=== PATIENT | female | born 1980 | race African-American/Black ===

== ENCOUNTER 2021-12-17 12:40 | Outpatient (CLI) | payer BC | END 2021-12-17 12:41 | disposition home or self-care (01) | LOC: CSHMRI 12:40 | PROVIDERS: ATTEND Orthopaedic Surgery | DX: M25.552 Pain in left hip (principal); S76.012A Strain of muscle, fascia and tendon of left hip, initial encounter; M62.89 Other specified disorders of muscle ==

== ENCOUNTER 2021-12-17 13:50 | Emergency (ER) | payer BC ==
[2021-12-17] MEDS ORDERED: Cyclobenzaprine 10 MG TAB ONE (14:19)
[2021-12-17] MEDS ORDERED: Ketorolac Tromethamine 30 MG/ML VIAL ONE (14:19)
[2021-12-17 14:42] LABS: MDiff Complete? YES; Mean Corpuscular HGB CONC 32.1 g/dL (32.0-36.0); Mean Corpuscular Hemoglobin 23.7 pg (27.0-33.0); Mean Corpuscular Volume 73.9 fl (81.6-98.3); Mean Platelet Volume 9.5 fl (7.4-10.4); Platelet Count 430 10x3/uL (150-450); RBC Distribution Width 15.2 % (11.5-14.5); Red Blood Cell (RBC) Count 5.06 10x6/uL (3.90-5.03); White Blood Cell (WBC) Count 23.5 10x3/uL (3.5-10.5)
[2021-12-17 14:51] LABS: ALT (SGPT) 50 U/L (8-55); AST (SGOT) 30 U/L (5-34); Albumin 3.6 g/dL (3.5-5.0); Alkaline Phosphatase 85 U/L (40-110); Anion Gap 13 mmol/L (10-20); BUN (Urea Nitrogen) 8 mg/dL (7.0-18.7); Bilirubin, Total 0.4 mg/dL (0.2-1.2); CRP (Inflammatory) 9.12 mg/dL (= or < 0.5); Calc. Creatinine Clearance 0 mL/min (70-130); Calcium 9.5 mg/dL (7.8-10.44); Carbon Dioxide 25 mmol/L (22-29); Chloride 105 mmol/L (98-107); Estimated GFR 91; Globulin 4.4 g/dL (2.4-3.5); Glucose 91 mg/dL (70-105); Potassium 3.6 mmol/L (3.5-5.1); Sodium 139 mmol/L (136-145)
[2021-12-17 15:39] LABS: Eosinophils 2 % (0-10); Lymphocytes 23 % (21-51); Monocytes 8 % (0-10); Neutrophil 67 % (42-75)
[2021-12-17 15:40] LABS: Anisocytosis SLIGHT = 6-15 cells (100X) (0-5/hpf); Microcytosis SLIGHT = 6-15 cells (100X) (0-5/hpf); Platelet Morphology Comment Appears Adequate
[2021-12-17] MEDS ORDERED: Morphine 4 MG/ML VIAL ONE (15:40)
[2021-12-17] MEDS ORDERED: Acetaminophen 500 MG TAB ONE (15:40)
[2021-12-17 15:58] LABS: Bilirubin Neg (Negative); Blood, Urine 250 (Negative); Clarity Clear (Clear); Glucose, Urine (Dipstick) Normal (Negative); Ketone, Urine 5 mg/dL (Negative); Leukocyte Negative (Negative); Nitrite Negative (Negative); Protein, Urine (Dipstick) 15 mg/dl (Neg-Trace); Urobilinogen Normal mg/dL (Less than 2)
[2021-12-17 16:08] LABS: Bacteria/HPF Rare-Few HPF (None Seen); Mucous/LPF 1+ LPF (<2+); WBC/HPF 0-3 HPF (0-3)
[2021-12-17 16:21] LABS: BHCG - Serum Negative (NEGATIVE); Pregs Control Background? CLEAR/WHITE (CLR/WHITE); Pregs Control Bar Appear? YES (CONTROL BAR)
== END 2021-12-17 16:25 | disposition short-term general hospital (02) ==
LOC: CSHERS 13:50
DX: S76.112A Strain of left quadriceps muscle, fascia and tendon, initial encounter (principal); X58.XXXA Exposure to other specified factors, initial encounter
CPT/HCPCS: 36415; 72158; 80053; 81003; 81015; 84703; 85025; 85652; 86140; 87040; 87086; 96372; 99284; A9579; J1885; J2270

== ENCOUNTER 2022-01-03 09:57 | Outpatient (CLI) | payer BC | END 2022-01-03 09:58 | disposition home or self-care (01) | LOC: CSHMRI 09:57 | PROVIDERS: ATTEND Physician Assistant Surgical | DX: M25.551 Pain in right hip (principal); S76.111A Strain of right quadriceps muscle, fascia and tendon, initial encounter; S76.811A Strain of other specified muscles, fascia and tendons at thigh level, right thigh, initial encounter; M67.88 Other specified disorders of synovium and tendon, other site ==